=== PATIENT | male | born 1960 | race Caucasian/White ===

== ENCOUNTER 2018-12-30 13:18 | Emergency (ER) | payer OTHER, MEDICAID ==
--- NOTE | 2018-12-30 13:46 | EDPHY ---
HPI/HX/ROS/PE/MDM Narrative: CHIEF COMPLAINT: Altered mental status HPI: This patient is a 58-year-old male with past medical history including developmental delay, Parkinson's disease, epilepsy. This morning, he was walking the [employer] road race with his financial accounting manager. After about 3 miles, she notes he started lagging behind and seeming altered and somewhat assertive, which is unusual for him. Once they reached the stadium he seemed confused, disoriented, and lethargic. He was noted to be hypotensive at the medical tent and staff there attempted oral rehydration. When the patient did not improve markedly, he was referred here to the emergency department. He has no complaints of pain. His financial accounting manager notes he is generally active and that it is unusual for him to feel unwell given his level of exertion today. HPI provided primarily by patient's financial accounting manager at bedside secondary to patient's history of developmental delay. REVIEW OF SYSTEMS: A comprehensive 10 system review of systems is otherwise negative aside from elements mentioned in the history of present illness and medical decision making. PMH: Parkinson's disease. Developmental delay. Epilepsy. High density lipoprotein deficiency. Hypothyroid. Osteopenia. SOCIAL HISTORY: Property Management Supervisor at bedside. Lives at assisted living. PHYSICAL EXAM: General:Patient is alert, in no acute distress. ENT:Eyes are normal to inspection. ENT inspection normal. Neck: Normal inspection. Full range of motion. Respiratory:No respiratory distress. Breath sounds normal bilaterally. Cardiovascular: Regular rate and rhythm. Strong peripheral pulses. Normal cap refill. Abdomen:The abdomen is nontender to palpation. There are no peritoneal signs. There are normal bowel sounds. Back: Normal to inspection. No tenderness to palpation. Skin: Normal color. No rash. Warm and dry. Extremities: Normal appearance. Full range of motion. Neuro: Baseline neurologic function. No focal deficits. ED Course: 58 y/o male presents with altered mental status including disorientation and lethargy after walking 3 miles in the [employer] today. His financial accounting manager at bedside notes that he appears to be improving somewhat at this time. Plan for EKG, labs including CBC, chemistries, POC troponin. EKG was ordered and interpreted by myself. Please see [employer] system for official reading. Reviewed laboratory studies. These are largely unremarkable. POC troponin negative at 0.00. Plan for UA for further evaluation. 16:08 Reassessed. Caretakers state patient appears back to baseline. They would like to take him home. They prefer not to wait for UA and are comfortable with returning the patient to his assisted living facility without further evaluation or interventions. Plan to discharge home in good condition. Follow up and return precautions discussed. His caretakers are comfortable with this plan. MDM: This patient presents with an episode of AMS that apparently has resolved. The etiology is unclear - workup is limited by caretakers' desire to take patient back to his living facility. I cannot exclude UTI. His condition does not seem consistent with CVA. - Data Points Laboratory Results: Laboratory Results 12/30/18 13:40 12/30/18 13:40 12/30/18 12/30/18 12/30/18 14:22 13:40 13:40 WBC 8.63 10^3/uL 10^3/uL (3.80-9.50) RBC 4.72 10^6/uL 10^6/uL (4.40-6.38) Hgb 15.3 g/dL g/dL (13.7-17.5) Hct 46.8 % % (40.0-51.0) MCV 99.2 fL fL (81.5-99.8) MCH 32.4 pg pg (27.9-34.1) MCHC 32.7 g/dL g/dL (32.4-36.7) RDW 12.8 % % (11.5-15.2) Plt Count 187 10^3/uL 10^3/uL (150-400) MPV 10.1 fL fL (8.7-11.7) Neut % (Auto) 79.9 % H % (39.3-74.2) Lymph % (Auto) 13.3 % L % (15.0-45.0) [place] % (Auto) 6.3 % % (4.5-13.0) Eos % (Auto) 0.1 % L % (0.6-7.6) Baso % (Auto) 0.3 % % (0.3-1.7) Nucleat RBC Rel Count 0.0 % % (0.0-0.2) Absolute Neuts (auto) 6.89 10^3/uL H 10^3/uL (1.70-6.50) Absolute Lymphs (auto) 1.15 10^3/uL 10^3/uL (1.00-3.00) Absolute Monos (auto) 0.54 10^3/uL 10^3/uL (0.30-0.80) Absolute Eos (auto) 0.01 10^3/uL L 10^3/uL (0.03-0.40) Absolute Basos (auto) 0.03 10^3/uL 10^3/uL (0.02-0.10) Absolute Nucleated RBC 0.00 10^3/uL 10^3/uL (0-0.01) Immature Gran % 0.1 % % (0.0-1.1) Immature Gran # 0.01 10^3/uL 10^3/uL (0.00-0.10) Sodium 137 mEq/L mEq/L (135-145) Potassium 4.3 mEq/L mEq/L (3.5-5.2) Chloride 98 mEq/L mEq/L (97-110) Carbon Dioxide 32 mEq/l H mEq/l (22-31) Anion Gap 7 mEq/L mEq/L (6-14) BUN 21 mg/dL mg/dL (7-23) Creatinine 1.0 mg/dL mg/dL (0.7-1.3) Estimated GFR > 60 Glucose 118 mg/dL H mg/dL (70-100) Calcium 9.6 mg/dL mg/dL (8.5-10.4) POC Troponin I 0.00 ng/mL ng/mL (0.00-0.08) Medications Given: Discontinued Medications Sodium Chloride (Ns) 1,000 mls @ 0 mls/hr IV EDNOW ONE; Wide Open PRN Reason: Protocol Stop: 12/30/18 14:10 Last Admin: 12/30/18 14:16 Dose: 1,000 mls Point of Care Test Results: Chemistry 12/30/18 14:22 POC Troponin I 0.00 ng/mL ng/mL (0.00-0.08) General Initial Vital Signs: Initial Vital Signs Temperature (C) 36.7 C 12/30/18 13:29 Heart Rate 119 H 12/30/18 13:29 Respiratory Rate 18 12/30/18 13:29 Blood Pressure 127/83 H 12/30/18 13:29 O2 Sat (%) 91 L 12/30/18 13:29 O2 Delivery Mode Room Air Allergies/Adverse Reactions: No Known Allergies Allergy (Unverified 12/30/18 13:29) Home Medications: Medication Instructions Recorded Keppra 12/30/18 Levothyroxine 12/30/18 Departure - Departure Disposition: Home, Routine, Self-Care Clinical Impression: Transient alteration of awareness Condition: Good Instructions: Altered Mental Status (ED) Additional Instructions: Follow-up with your primary doctor within 2-3 days. Return to the Emergency Department for recurrence of symptoms or if you develop fever, chest pain, shortness of breath, increasing pain or other worsening of condition. Referrals: Tniy Adams MD [Medical Doctor] - As per Instructions Report Scribed for: Israel Rudd Report Scribed by: Mary Blake Date of Report: 12/30/18 Time of Report: 16:15 Physician Review and Approval Statement: Portions of this note were transcribed by an ED scribe. I personally performed the history, physical exam, and medical decision making; and confirm the accuracy of the information in the transcribed note.
[2018-12-30] MEDS ORDERED: NS 1,000 ML IV ONE (14:09)
[2018-12-30 14:17] LABS: PLATELET COUNT 187 10^3/uL (150-400)
[2018-12-30 16:25] VITALS: BP 136/74
--- NOTE | 2018-12-30 18:52 | CPEKG ---
Test Reason : OPEN Blood Pressure : / mmHG Vent. Rate : 119 BPM Atrial Rate : 119 BPM P-R Int : 176 ms QRS Dur : 073 ms QT Int : 307 ms P-R-T Axes : 041 -53 032 degrees QTc Int : 432 ms Sinus tachycardia Inferior infarct, old Confirmed by Israel Rudd ([id number]) on 12/30/2018 6:51:19 PM Referred By: Israel Rudd Confirmed By:Israel Rudd
== END 2018-12-30 16:15 | disposition home or self-care (01) ==
LOC: EDUNIT#
DX: R40.4 Transient alteration of awareness (principal); E86.9 Volume depletion, unspecified
CPT/HCPCS: 84484-ER